=== PATIENT | male | born 1985 | race Caucasian/White ===

== ENCOUNTER 2017-09-01 13:13 | Emergency (ER) | payer SELFPAY ==
[~2017-09-01] VITALS: Ht 182.9 cm; Wt 77.3 kg
[2017-09-01 13:19] VITALS: BP 161/84; Ht 182.9 cm; Wt 77.3 kg
== END 2017-09-01 15:05 | disposition left against medical advice (07) ==
LOC: D.ER 13:13
DX: F22 Delusional disorders (principal); F17.200 Nicotine dependence, unspecified, uncomplicated